=== PATIENT | female | born 1955 | race Caucasian/White ===

== ENCOUNTER 2018-04-23 13:40 | Emergency (ER) | payer BC, OTHER ==
--- NOTE | 2018-04-23 14:25 | ED PDOC ---
HPI: General Adult Time Seen by Provider: 04/23/18 14:24 Chief Complaint (Nursing): Fever Chief Complaint (Provider): LEG PAIN History Per: Patient (62 Y/O FEMALE H/O DM HERE WITH BILATERAL LOWER EXTREMITY PAIN R>L ASSOCIATED WITH LOWER EXTREMITY SWELLING. NO H/O DVT. NO H/O FALL. DENIES ANY KNEE PAIN. NOTES LOW GRADE FEVER.) Past Medical History Reviewed: Historical Data, Nursing Documentation, Vital Signs Vital Signs: Last Vital Signs Temp 99.7 F H 04/23/18 19:17 Pulse 110 H 04/23/18 19:17 Resp 20 04/23/18 19:17 BP 135/71 04/23/18 19:17 Pulse Ox 95 04/23/18 19:17 - Medical History PMH: Diabetes (Borderline Diabetes) - Family History Family History: States: Unknown Family Hx - Home Medications Home Medications: Ambulatory Orders Medication Instructions Recorded 0.9 % Sodium Chloride [Saline 5 ml INH Q4 #210 ml 02/12/16 Wound Wash] Albuterol HFA [Ventolin HFA 90 2 puff IH [id number] #200 puff 02/12/16 mcg/actuation (8 g)] Non-Formulary 1 ea XX DAILY #1 ea 02/12/16 - Allergies Allergies/Adverse Reactions: Allergies Allergy/AdvReac Type Severity Reaction Status Date / Time No Known Allergies Allergy Verified 02/12/16 16:42 Review of Systems ROS Statement: Except As Marked, All Systems Reviewed And Found Negative Physical Exam - Reviewed Nursing Documentation Reviewed: Yes Vital Signs Reviewed: Yes - Physical Exam Appears: Positive for: Well, Non-toxic, No Acute Distress Head Exam: Positive for: ATRAUMATIC, NORMAL INSPECTION, NORMOCEPHALIC Skin: Positive for: Normal Color, Warm, DRY Eye Exam: Positive for: EOMI, Normal appearance, PERRL ENT: Positive for: Normal ENT Inspection Neck: Positive for: Normal, Painless ROM Cardiovascular/Chest: Positive for: Regular Rate, Rhythm Respiratory: Positive for: CNT, Normal Breath Sounds Gastrointestinal/Abdominal: Positive for: Normal Exam, Soft Back: Positive for: Normal Inspection Extremity: Positive for: Normal ROM, Swelling (RIGHT LEG CALF SWELLING/ TENDERNESS) Neurologic/Psych: Positive for: Alert, Oriented - Laboratory Results Result Diagrams: 04/23/18 14:52 04/23/18 14:52 - ECG O2 Sat by Pulse Oximetry: 98 - Progress ED Course And Treament: Call from lab regarding elevated wbc. d/w pathology who states 90% lymphoblasts on peripheral smear with high suspicious of acute leukemia. d/w Dr. Contreras. recommends hydroxyurea 2000 mg x 1 dose call placed to [facility] to arrange for transfer of care D/w Dr. Sigala. Will be accepted to Dr. Piper Disposition - Clinical Impression Clinical Impression: Acute leukemia - Patient ED Disposition Is Patient to be Admitted: Transfer of Care - Disposition Disposition: Other Institution Disposition Time: 19:36 Condition: FAIR
[2018-04-23 14:58] LABS: EOS # 0.7 K/uL (0.0-0.7); EOS % 0.2 % (0.0-4.0); HEMOGLOBIN 10.5 g/dL (12.0-16.0); LYMPH # 4.8 K/uL (1.0-4.3); LYMPH % 1.7 % (20.0-40.0); MEAN CELL VOLUME 86.4 fl (81.0-99.0); MEAN CORPUSCULAR HEMOGLOBIN 27.5 pg (27.0-31.0); MEAN CORPUSCULAR HGB CONC 31.8 g/dL (33.0-37.0); MEAN PLATELET VOLUME 7.2 fl (7.2-11.7); MONO # 1.7 K/uL (0.0-0.8); MONO % 0.6 % (0.0-10.0); NEUT # 272.1 K/uL (1.8-7.0); NEUT % 97.5 % (50.0-75.0); PLATELET COUNT 67 K/uL (130-400); RBC 3.83 Mil/uL (3.80-5.20); RED CELL DISTRIBUTION WIDTH 15.5 % (11.5-14.5)
[2018-04-23 15:04] LABS: INR 1.3; PROTHROMBIN TIME 14.1 Seconds (9.8-13.1)
[2018-04-23 15:07] LABS: PARTIAL THROMBOPLASTIN TIME 37.4 Seconds (25.6-37.1)
[2018-04-23 15:11] LABS: ALB/GLOB RATIO 1.1 (1.0-2.1); ALBUMIN 3.8 g/dL (3.5-5.0); ALT/SGPT 61 U/L (9-52); AST/SGOT 63 U/L (14-36); BLOOD UREA NITROGEN 11 mg/dl (7-17); CALCIUM 8.9 mg/dL (8.4-10.2); GFR NON-AFRICAN AMERICAN > 60
[2018-04-23 15:13] LABS: WHITE BLOOD COUNT 279.3 K/uL (4.8-10.8)
[2018-04-23 15:19] LABS: B-TYPE NATRIURETIC PEPTIDE 251 pg/ml (0-900)
[2018-04-23 16:07] LABS: BLASTS 97 % (0-0); LYMPHOCYTE 2 % (20-50); NEUTROPHIL 1 % (42-75); TOTAL CELLS COUNTED 100
[2018-04-23 16:08] LABS: PLATELET ESTIMATE DECREASED (NORMAL)
--- NOTE | 2018-04-23 17:46 | US ---
Date of service: 04/23/2018 PROCEDURE: Bilateral lower extremity venous duplex Doppler. HISTORY: R/O DVT COMPARISON: None available. TECHNIQUE: Bilateral common femoral, superficial femoral, popliteal and posterior tibial veins were evaluated. Flow was assessed with color Doppler, compressibility, assessment of phasic flow and augmentation response. FINDINGS: COMMON FEMORAL VEIN: Right CFV: Unremarkable. Left CFV: Unremarkable. SUPERFICIAL FEMORAL VEIN: Right SFV: Unremarkable. Left SFV: Unremarkable. POPLITEAL VEIN: Right Popliteal: Unremarkable. Left Popliteal: Unremarkable. POSTERIOR TIBIAL VEIN: Right PTV: Unremarkable. Left PTV: Unremarkable. OTHER FINDINGS: None. IMPRESSION: No evidence of deep venous thrombosis.
[2018-04-23 19:18] VITALS: BP 135/71; PULSE 110; RESP 20; TEMP 99.7
[2018-04-24 10:51] LABS: MONOCYTE 0 % (0-10)
[2018-05-05 06:04] VITALS: O2SAT 98
== END 2018-04-23 19:20 | disposition short-term general hospital (02) ==
LOC: H.ER 13:40
DX: C95.00 Acute leukemia of unspecified cell type not having achieved remission (principal); E11.9 Type 2 diabetes mellitus without complications